=== PATIENT | female | born 1990 | race Caucasian/White ===

== ENCOUNTER 2024-04-20 01:32 | Inpatient (IN) | payer BC, SELFPAY ==
[2024-04-20] VITALS (43 sets, daily range): BP systolic 93–148; BP diastolic 65–110; PULSE 11–138; RESP 20–45; TEMP 36.7–36.9; O2SAT 90–100; BMI 23.6
--- NOTE | ~2024-04-20 | XR_ITS ---
Portable chest x-ray Comparison: None Clinical History: Shortness of breath Findings: Lungs are clear, without focal consolidation or pleural effusion. Cardiomediastinal silho uette is unremarkable. Bones and soft tissues are unremarkable. Impression: Normal chest. Reviewed, dictated and finalized at location . Impression: Normal chest.
[2024-04-20] MEDS: ALBUTEROL SULFATE NEB 2.5 MG/3 ML INH 10 MG INHALATION ×2 (01:40→02:21)
--- NOTE | 2024-04-20 01:42 | ECG_ITS ---
Test Date: 2024-04-20 04:13:41 Measurements Intervals [place] Rate: 117 P: 64 MO: 137 QRS: 40 QRSD: 85 T: 75 QT: 354 QTc: 496 Interpretive Statements SINUS TACHYCARDIA POSSIBLE LEFT ATRIAL ENLARGEMENT MINIMAL Q WAVES- HIGH LATERAL LEADS BORDERLINE T WAVE ABNORMALITY- HIGH LATERAL LEADS ABNORMAL ECG Compared to ECG 04/20/2024 01:52:52 HEART RATE HAS DECREASED Electronically Signed On 04-20-2024 06:43:24 CDT by Braeden Barker D.O.
--- NOTE | 2024-04-20 01:43 | PC.NURSE ---
VORB for 0.3 mg of 1:1000 Epinephrine IM for respiratory distress
[2024-04-20 01:52] LABS: Basophils Absolute Auto 0.4 K/mm3 (0.0-0.1); Basophils Percent Auto 1.9 % (0.2-1.2); Eosinophils Absolute Auto 1.7 K/mm3 (0-0.3); Eosinophils Percent Auto 8.2 % (0-4.4); Hematocrit 39.4 % (37.0-47.0); Hemoglobin 12.9 g/dL (12.0-15.0); Immature Granulocyte Absolute 0.12 K/mm3 (0.00-0.031); Immature Granulocyte Percent A 0.6 % (0-0.5); Lymphocytes Absolute Auto 6.28 K/mm3 (0.9-3.2); Lymphocytes Percent Auto 29.9 % (18.3-44.2); Mean Corpuscular HGB Conc 32.7 g/dl (32-36); Mean Corpuscular Hemoglobin 28.9 pg (26-34); Mean Corpuscular Volume 88.1 fl (80-100); Monocytes Absolute Auto 3.6 K/mm3 (0.1-0.6); Neutrophils Absolute Auto 8.9 K/mm3 (1.3-6.7); Neutrophils Percent Auto 42.4 % (45.5-73.1); Platelet Count Result 399 k/mm3 (150-375); Red Blood Count 4.47 M/mm3 (4.2-5.4); Red Cell Distribution Width 13.6 % (11.5-14.5)
--- NOTE | 2024-04-20 01:52 | ECG_ITS ---
Test Date: 2024-04-20 01:52:52 Measurements Intervals [place] Rate: 138 P: 75 VT: 139 QRS: 43 QRSD: 97 T: 82 QT: 298 QTc: 452 Interpretive Statements SINUS TACHYCARDIA WITH OCCASIONAL VENTRICULAR PREMATURE COMPLEXES BORDERLINE ST-T WAVE ABNORMALITY- LAT/HIGH LAT LEADS BASELINE ARTIFACT- I, II, III, AVR, AVL, AVF, V1-V6 ABNORMAL ECG No previous ECG available for comparison Electronically Signed On 04-21-2024 09:04:08 CDT by Braeden Barker D.O.
[2024-04-20 01:54] LABS: Fractional Inspired Oxygen 100 %; HCO3 VBG 25.6 mEq/l (24.0-30.0)
[2024-04-20 01:55] LABS: pH VBG 7.161 (7.300-7.400)
[2024-04-20 01:56] LABS: Device CPAP; PCO2 VBG 73.2 mmHg (42.0-48.0)
[2024-04-20 02:03] LABS: Alanine Aminotransferase 30 U/L (6-35); Albumin Level 4.5 g/dL (3.5-5.1); Alkaline Phosphatase 93 U/L (38-126); Anion Gap 9 mmol/L (4-12); Aspartate Amino Transferase 39 U/L (14-36); Bilirubin,Total 0.5 mg/dL (0.2-1.3); Blood Urea Nitrogen 12 mg/dL (7-17); Calcium 8.5 mg/dL (8.4-10.2); Carbon Dioxide 28 mmol/L (22-30); Chloride 98 mmol/L (98-107); Estimated Glomerular Filt Rate > 60; Glucose 153 mg/dL (65-110); Lactic Acid Reflex 1.6 mmol/L (0.7-2.0); Potassium 4.2 mmol/L (3.4-5.0); Sodium 135 mmol/L (137-145)
[2024-04-20 02:05] LABS: D Dimer 0.37 ug/mL (<0.48)
[2024-04-20] MEDS: LORazepam INJ (*CRX) 2 MG/ML VIAL 0.5 MG IV PUSH (02:24)
--- NOTE | 2024-04-20 02:28 | ED.GENADULT ---
HPI - General Adult General Chief complaint: Shortness of Breath/Dyspnea Stated complaint: short of breath Time Seen by Provider: 04/20/24 01:45 History of Present Illness HPI narrative: Patient is a 33-year-old female who presents to the emergency department this morning in severe respiratory distress. Patient does have a known history of asthma and states that she has been having worsening of her asthma since she has been battling an upper respiratory infection. Patient admits that she has needed to be hospitalized in the past for her asthma and states that she was intubated at 1 point. EMS administered 2 g of IV magnesium, 10 mg IV Decadron and 5 mg of albuterol breathing treatment. Upon EMS arrival they did note that the patient was tripoding and cyanotic. Patient is speaking in short sentences. No additional symptoms or concerns at this time. Related Data Home Medications Medication Instructions Recorded Confirmed aripiprazole 20 mg tablet 20 mg PO DAILY 08/12/23 03/22/24 bupropion HCl 150 mg 24 hr tablet, 150 mg PO DAILY 08/12/23 03/22/24 extended release bupropion HCl 300 mg 24 hr tablet, 300 mg PO DAILY 08/12/23 03/22/24 extended release hydroxyzine HCl 50 mg tablet 50 mg PO QHS 08/12/23 03/22/24 Allergies Allergy/AdvReac Type Severity Reaction Status Date / Time tetracycline AdvReac Unknown Hives Verified 03/22/24 12:12 Review of Systems Review of Systems: All systems are reviewed and are negative unless stated otherwise in the HPI. [facility] Past Medical History Medical History Anxiety Depression Seizures Family History Family History Father Alcoholism Depression Anxiety Mother Diabetes mellitus Grandparent Hypertension Diabetes mellitus Social History Social History Smoking status: Never smoker Alcohol intake: never Substance use: never Substance use type: does not use Do You Feel Safe in your Home?: Yes Lack of Transportation: No Lack of Food: Never True Current Housing: I Have Housing Concerned About Future Housing: No Difficulty Paying Gas/Electric Bills: No Difficulty Paying for Meds: No Currently Unemployed: No Education: High School Diploma/GED Difficulty w/ Childcare or Family Care: No Living arrangements: alone Occupation/Education: occupation 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 HEENT: PERRL, no rhinorrhea, no post nasal drip, oropharynx clear. Cardiovascular: Regular rate and rhythm, no murmurs, rubs or gallops, no peripheral edema. Respiratory: Use bilateral inspiratory and expiratory, tachypnea, severe respiratory distress. Abdomen: Soft, nontender, nondistended, no rebound, no guarding, no peritoneal signs. Musculoskeletal: No joint swelling or deformity, normal muscle tone. Skin: No rashes or petechia, no signs of infection. Neurological: Alert and oriented to person, place, and time. Follows all commands. No focal deficits, speech is clear and fluent. Course Vital Signs Vital signs: Vital Signs Pulse Rate 133 H 04/20/24 01:40 Respiratory Rate 40 H 04/20/24 01:40 Blood Pressure 146/110 H 04/20/24 01:40 Pulse Oximetry 95 04/20/24 01:40 Oxygen Delivery CPAP 04/20/24 01:40 Pulse Rate 116 H 04/20/24 04:31 Respiratory Rate 20 04/20/24 04:31 Blood Pressure 106/72 04/20/24 04:31 Pulse Oximetry 99 04/20/24 04:31 Oxygen Delivery BiPAP 04/20/24 04:27 Medical Decision Making MDM Narrative Medical decision making narrative: The patient was evaluated by myself in the emergency department. History is obtained from patient who is an independent historia
[2024-04-20] MEDS: IPRATROPIUM 0.5 MG/ALBUTEROL SULFATE 2.5 MG AMPUL.NEB 3 ML 12 ML INHALATION (02:51)
[2024-04-20] MEDS: IPRATROPIUM 0.5 MG/ALBUTEROL SULFATE 2.5 MG AMPUL.NEB 3 ML 12 ML (02:56)
[2024-04-20] MEDS: EPINEPHrine INJ 1 MG in DEXTROSE 5% IN WATER 250 ML 75.3 MG IV CONT ×2 (03:03→06:42)
[2024-04-20] MEDS: SODIUM CHLORIDE 0.9% IV 1,000 ML 999 ML IV CONT (04:04)
[2024-04-20 04:23] LABS: Alveolar/Arterial O2 Gradient 156.2 mmHg; Base Excess ABG -0.1 mEq/l (+/-2.0); Fractional Inspired Oxygen 100 %; HCO3 ABG 25.2 mEq/l (22.0-26.0); Oxygen Content ABG 19.1 %vol (16.0-22.0); Oxygen Saturation ABG 99.9 % (95.0-100.0); PCO2 ABG 43.8 mmHg (35.0-45.0); PO2 FiO2 Ratio Arterial Blood 5.13 %; Total Hemoglobin 12.7 g/dL (12.0-18.0); pH ABG 7.378 (7.350-7.450)
[2024-04-20 04:24] LABS: Device NON-INVASIVE VENT; Modified Allen's Test Pass; Non-Invasive Expiratory Pressure 8 CMH2O; Non-Invasive Inspiratory Pressure 16 CMH2O; Non-Invasive Vent Rate 12 /MIN; Site Drawn LEFT RADIAL
--- NOTE | 2024-04-20 06:09 | ADMGEN ---
This patient, Nicki Moise, was admitted to Intensive Care Unit-8. Patient/family oriented to hospital policies and general routines including ID bracelet, bed and alarms, visiting hours, pain management, procedures, bathroom and other care routines, personal items, smoking policy, room service/diet, and visiting hours. Information on how to activate the Rapid Response Team has been discussed. Patient/Family are encouraged to report perceived risks to care and to ask questions if they do not understand what they are told or what they should do.
[2024-04-20] MEDS: IPRATROPIUM 0.5 MG/ALBUTEROL SULFATE 2.5 MG AMPUL.NEB 3 ML INHALATION (07:46)
--- NOTE | 2024-04-20 08:16 | PM.IMHP ---
H&P: HPI History of Present Illness Date/Time: 04/20/24 08:16 Chief Complaint: Shortness of breath Narrative: 33yo female with mild intermittent asthma, depression, anxiety and psychogenic seizures here for shortness of breath. Patient denies eczema or allergies. She has never been hospitalized or intubated for asthma. She does not seen pulmonology. She was using exclusively Albuterol inhaler until she received a nebulizer 6 months ago. She now uses Albuterol and Atrovent nebulizer 4x/day. She uses the Albuterol inhaler about once every week on average. She is not on any other inhalers but has been before (she recalls Advair) but can not afford these medications. No hx of receiving IV treatment for her asthma. She has a gecko but no other pets. No CAD. Her 2 children have been ill with cold symptoms of rhinorrhea, cough and chest congestion. She became ill 2 days ago with nasal congestion, chest tightness, cough productive of yellow sputum, pleuritic chest tightness and wheezing. No fever or chills. No MAR, vision changes, hearing changes, otalgia, odynophagia, dysphagia, n/v/d, dysuria, hematuria or other symptoms. She feels she has to void but having trouble voiding. Her SOB worsened with having trouble taking a breath and EMS called. On EMS arrival, they noted patient was tripoding and cyanotic. They administered 2 g of IV magnesium, 10 mg IV Decadron and 5 mg of albuterol breathing treatment. She was brought into the ED for evaluation. In the ED, she was tachycardic (130's), hypertensive at 146/110 and tachypneic with RR 40's. CXR was clear. CPAP started but VBG showing 7.16/73/129 so changed to BiPAP. WBC was 21K with eosinophilia (8.2% with 1700cells). DDimer was negative. CMP normal except for sodium of 135, AST 39 and glucose 153. Glucose was after given steroids. EKG showing sinus tachycardia, ?LAE, minimal Q's in high lateral leads and borderline T wave changes. She was given prolonged bronchodilators, Ativan, IV fluid bolus and Epinephrine IV. She was admitted to the ICU for further management. She remains on BiPAP. Repeat ABG 7.37/44/513 on bipap. Review of Systems Review of Systems: All systems reviewed & are unremarkable except as noted in HPI and below PMFSH Past Medical History Medical History Anxiety Asthma Depression Seizures psychogenic Surgical History Surgical History No history of previous surgery Family History Family History Father Alcoholism Depression Anxiety Mother Diabetes mellitus Grandparent Hypertension Diabetes mellitus Social History Social History (Updated 04/20/24 @ 09:26 by Dirk Cole MD) Social History: Smokes marijuana daily. No tobacco smoking. Lives at home with and 2 children. No IVDU or hx of IV drug use. No alcohol use. Full Code Surrogate decision maker - . 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
[2024-04-20] MEDS: ENOXAPARIN 40 MG/0.4 ML SYRINGE SUB-Q (08:35)
--- NOTE | 2024-04-20 08:38 | WPDCNINT ---
Assessment and Plan Assessment and plan (1) Status asthmaticus: Code(s): J45.902 - Unspecified asthma with status asthmaticus Status: Acute Assessment and Plan: Patient appears to have status asthmaticus which was likely precipitated by either URI or her daily marijuana inhalation.. Patient does have a baseline persistent severe asthma which has been poorly treated and controlled due to her inability to afford medications except albuterol Patient treated with magnesium Decadron bronchodilators IM epinephrine and BiPAP in the ER. Patient was started on IV infusion of epinephrine Repeat ABG reviewed and patient appears to be clinically improved with good tidal volumes and resolution of respiratory distress I will start weaning down epinephrine infusion slowly Continue BiPAP for now Continue Solu-Medrol and bronchodilators Elevated WBC could be from stress steroids or epinephrine. She is afebrile. Chest x-ray is negative. She is currently not on antibiotics I will Check procalcitonin level Check PCR for RSV flu and COVID (2) Acute respiratory failure: Code(s): J96.00 - Acute respiratory failure, unspecified whether with hypoxia or hypercapnia Status: Acute Assessment and Plan: Acute respiratory failure secondary to status asthmaticus. Management as above. (3) Marijuana abuse: Code(s): F12.10 - Cannabis abuse, uncomplicated Status: Acute Assessment and Plan: Patient was counseled and encouraged not to inhale marijuana back switch can not respirator asthma exacerbation. Plan DVT prophylaxis -Lovenox Nutrition -npo Code Status - Full Code Total Critical Care Time - 35 minutes Due to a high probability of clinically significant, life threatening deterioration, the patient required my highest level of preparedness to intervene emergently and I personally spent this critical care time directly and personally managing the patient. This critical care time included obtaining a history; examining the patient; pulse oximetry; ordering and review of studies; arranging urgent treatment with development of a management plan; evaluation of patient's response to treatment; frequent reassessment; and discussions with other providers. It was exclusive of separately billable procedures and treating other patients and teaching time. Please see Assessment and Plan section and the rest of the note for further information on patient assessment and treatment Hotel General Manager Consult Note Consult date: 04/20/24 Reason for consult: Status asthmaticus, acute respiratory failure HPI: Nicki Moise is a 33 year old female with past medical history of pseudoseizures, depression, anxiety, borderline personality disorder, asthma presented to ER today with chief complaint of shortness of breath. Patient has severe persistent asthma and has not been able to afford any other inhaler or medication except the albuterol which she uses on regular basis. Over last 2 days patient states that she was exposed to her child who had a URI. She started having stuffy nose with nasal discharge. This led to her having difficulty breathing over last 2 days. With chest tightness and inability to take deep breaths. Patient had some cough although it was not significant and had mild phlegm associated with it. She did not had any fever. No abdominal pain nausea vomiting diarrhea hematochezia melena dysuria hematuria. Review of system was also positive for constipation which is chronic. She states that she had chest pain with deep breathing. She was using her inhaler 4 to 5 times a day. All other systems were reviewed and were negative. She admitted to me that she inhales THC wax daily. Denies any smoking or any other drug use. Denies any alcohol use. Patient presented to ER in severe respiratory distress and low was having difficulty breathing with diffuse wheezing. She was tripoding with cyanosis. VBG showed hypercarbia and acidos
[2024-04-20 09:13] LABS: Procalcitonin 0.1 ng/mL
[2024-04-20 09:20] LABS: SPREG INTERNAL CONTROL Positive; Serum Qual hCG Negative
--- NOTE | 2024-04-20 09:21 | PM.CNPUL ---
Assessment and Plan Assessment and plan (1) Status asthmaticus: Code(s): J45.902 - Unspecified asthma with status asthmaticus Status: Acute Assessment and Plan: 33-year-old with a history of childhood asthma that went into remission but recurred 2 years ago when she started smoking synthetic marijuana. She is maintained on albuterol nebulizers 1 to 2 times a day and cannot afford inhaled corticosteroids. She presents with 24 hours of URI symptoms and status asthmaticus with an ABG on CPAP of 7.16/73/129. Patient was started on steroids, bronchodilators, epinephrine drip, magnesium and continued on BiPAP. 04/20/2024 at 9:00 a.m.: currently the patient is on BiPAP rate of 12, pressure 16/8, 30% FiO2 and in no respiratory distress. She states that she is 80% back to normal. She said the BiPAP pressures were somewhat uncomfortable and I changed her to noninvasive ventilation with the AVAPS mode rate of 10, tidal volume 450, EPAP 5, minimal inspiratory pressure 6, maximal inspiratory pressure 25, inspiratory time 1.1, rise of 2 and 30% FiO2. She had bilateral inspiratory and expiratory course wheezes. Plan: Etiology of asthma exacerbation includes URI and or exposure tooth synthetic marijuana. I will continue noninvasive ventilation for comfort at this time and I placed her on the AVAPS mode PRN. Agree with weaning epinephrine drip to off as tolerated. Patient is on Solu-Medrol 60 mg IV q.6. Continue albuterol and ipratropium nebulizers q.4 hours. Chest x-ray is clear. COVID, influenza and RSV RT PCR study is pending. I will order respiratory pathogen panel that will be sent to [facility] with results back in approximately 7 days. Procalcitonin is pending and if this is elevated would consider azithromycin otherwise would hold off on antibiotics. Discussed with Kike Cole and Sal. Will follow with you History of Present Illness History of Present Illness Consult date: 04/20/24 Chief complaint: Severe asthma exacerbation, On CPAP, Epi drip Narrative: 04/20/2024: This is a new pulmonary consult for asthma 33-year-old with a history of asthma and depression presented to the ED with status asthmaticus. Patient is currently on BiPAP but able to communicate. She has a history of asthma as a baby and was on inhalers as a young child and 3 grade school. Her asthma got better and she was off medicines. Approximately 2 years ago she started smoking synthetic marijuana and noticed that her asthma began to flare. She tells me she takes albuterol nebulizers 1 to 2 times a day at home but cannot afford inhaled steroids. Patient's usual triggers include stress and smoke. Patient was in her usual state of health until 924 when she developed URI symptoms consisting of sinus congestion, sinus drainage, chest tightness. Symptoms progressed and she presented to the emergency room on 04/20 at 1 in the morning. She was in severe respiratory distress and she tells me she felt like she was going to . EMS had administered 2 g IV magnesium, 10 mg of Decadron and 5 mg albuterol treatment she was tripoding and cyanotic and was placed on CPAP 100% FiO2 with a blood gas of 7.16/73/129. Patient was given broncho dilators, Ativan epinephrine drip and Solu-Medrol. She was placed on BiPAP and transferred to the ICU. 04/20/2024 at 9:00 a.m.: currently the patient is on BiPAP rate of 12, pressure 16/8, 30% FiO2 and in no respiratory distress. She states that she is 80% back to normal. She said the BiPAP pressures were somewhat uncomfortable and I changed her to noninvasive ventilation with the AVAPS mode rate of 10, tidal volume 450, EPAP 5, minimal inspiratory pressure 6, maximal inspiratory pressure 25, inspiratory time 1.1, rise of 2 and 30% FiO2. She had bilateral inspiratory and expiratory course wheezes. DATA 04/20/24: Portable chest x-ray Comparison: None Clinical History: Aminah
[2024-04-20 09:24] LABS: Influenza A QL RT-PCR Negative (Negative); Influenza B QL RT-PCR Negative (Negative); RSV RNA, RT-PCR Negative (Negative); SARS-CoV-2 RNA PCR Negative (Negative)
[2024-04-20 10:02] LABS: MRSA (PCR) NOT DETECTED (NOT DETECTE)
[2024-04-20] MEDS: ARIPiprazole 10 MG TABLET 20 MG PO (10:43)
[2024-04-20] MEDS: buPROPion HCL XL (24 HR) 150 MG TABCR 300 MG PO (10:43)
[2024-04-20] MEDS: IPRATROPIUM 0.5 MG/ALBUTEROL SULFATE 2.5 MG AMPUL.NEB 3 ML NEBULIZE ×3 (11:18→20:06)
[2024-04-20] MEDS: methylPREDNISolone SOD SUCC 125 MG VIAL 60 MG IV PUSH ×3 (12:04→22:57)
--- NOTE | 2024-04-20 12:50 | PC.NURSE ---
Updated patient's mother, Dorothea, via telephone on plan of care and patient condition.
[2024-04-20] MEDS: buPROPion HCL XL (24 HR) 150 MG TABCR PO (20:57)
[2024-04-20] MEDS: hydrOXYzine HCL 25 MG TABLET 50 MG PO (22:56)
[2024-04-21] VITALS (32 sets, daily range): BP systolic 90–109; BP diastolic 63–90; PULSE 85–135; RESP 16–24; TEMP 36–36.9; O2SAT 91–98
[2024-04-21] MEDS: IPRATROPIUM 0.5 MG/ALBUTEROL SULFATE 2.5 MG AMPUL.NEB 3 ML NEBULIZE ×6 (00:56→19:47)
[2024-04-21 05:02] LABS: Hematocrit 35.3 % (37.0-47.0); Hemoglobin 11.9 g/dL (12.0-15.0); Mean Corpuscular HGB Conc 33.7 g/dl (32-36); Mean Corpuscular Hemoglobin 29.5 pg (26-34); Mean Corpuscular Volume 87.4 fl (80-100); Mean Platelet Volume 10.1 fl (7.4-10.4); Platelet Count Result 246 k/mm3 (150-375); Red Blood Count 4.04 M/mm3 (4.2-5.4)
[2024-04-21] MEDS: methylPREDNISolone SOD SUCC 125 MG VIAL 60 MG IV PUSH (05:12)
[2024-04-21 05:14] LABS: Alanine Aminotransferase 28 U/L (6-35); Albumin Level 4.1 g/dL (3.5-5.1); Alkaline Phosphatase 82 U/L (38-126); Anion Gap 8 mmol/L (4-12); Aspartate Amino Transferase 39 U/L (14-36); Bilirubin,Total 0.3 mg/dL (0.2-1.3); Blood Urea Nitrogen 14 mg/dL (7-17); Calcium 8.8 mg/dL (8.4-10.2); Carbon Dioxide 23 mmol/L (22-30); Chloride 107 mmol/L (98-107); Estimated Glomerular Filt Rate > 60; Glucose 131 mg/dL (65-110); Magnesium 2.6 mg/dL (1.6-2.3); Potassium 4.6 mmol/L (3.4-5.0); Sodium 138 mmol/L (137-145)
--- NOTE | 2024-04-21 08:04 | PM.PNPUL ---
Progress Note: A&P Assessment and Plan (1) Status asthmaticus: Code(s): J45.902 - Unspecified asthma with status asthmaticus Status: Acute Assessment and Plan: 33-year-old with a history of childhood asthma that went into remission but recurred 2 years ago when she started smoking synthetic marijuana. She is maintained on albuterol nebulizers 1 to 2 times a day and cannot afford inhaled corticosteroids. She presents with 24 hours of URI symptoms and status asthmaticus with an ABG on CPAP of 7.16/73/129. Eosinophils 1722 per micro L. D-dimer negative. Patient was started on steroids, bronchodilators, epinephrine drip, magnesium and continued on BiPAP. 04/20/2024 at 9:00 a.m.: currently the patient is on BiPAP rate of 12, pressure 16/8, 30% FiO2 and in no respiratory distress. She states that she is 80% back to normal. She said the BiPAP pressures were somewhat uncomfortable and I changed her to noninvasive ventilation with the AVAPS mode rate of 10, tidal volume 450, EPAP 5, minimal inspiratory pressure 6, maximal inspiratory pressure 25, inspiratory time 1.1, rise of 2 and 30% FiO2. She had bilateral inspiratory and expiratory course wheezes. Plan: Etiology of asthma exacerbation includes URI and or exposure tooth synthetic marijuana. I will continue noninvasive ventilation for comfort at this time and I placed her on the AVAPS mode PRN. Agree with weaning epinephrine drip to off as tolerated. Patient is on Solu-Medrol 60 mg IV q.6. Continue albuterol and ipratropium nebulizers q.4 hours. Chest x-ray is clear. COVID, influenza and RSV RT PCR study is pending. I will order respiratory pathogen panel that will be sent to [facility] with results back in approximately 7 days. Procalcitonin is pending and if this is elevated would consider azithromycin otherwise would hold off on antibiotics. Later in the day epinephrine was weaned off. Procalcitonin 0.1. COVID, RSV, influenza RT PCR assay negative. 04/21/2024: The patient tells me she continues to improvement feels that she is 90% back to normal. She states she is still wheezing. Patient says her cough is a little more pronounced than yesterday and she has a little bit of phlegm with no hemoptysis. She is afebrile. Patient was told to wear the noninvasive ventilator last night and it does help her breathe. When I enter the room she was on noninvasive ventilator with the AVAPS mode on 30% FiO2 with saturations 100%. I took the patient off and placed her on 2 L nasal cannula her saturations were 97%. [place]. [place] [id number], creatinine is 0.6. Plan: Patient is improved. I will decrease her IV Solu-Medrol from 60 q.6 to 40 Q 6. Will continue DuoNebs q.4 hours. Patient can wear the noninvasive ventilation on a p.r.n. basis. Goal saturation 90-94 %, wean FiO2 accordingly. Respiratory pathogen panel to check 21 respiratory pathogens sent to [facility] and results pending. out of bed to chair. From a pulmonary perspective patient can be transferred out of the ICU to IMU. Will follow with you. Subjective Date/time seen: 04/21/24 08:04 Interval history: 04/20/2024: This is a new pulmonary consult for asthma 33-year-old with a history of asthma and depression presented to the ED with status asthmaticus. Patient is currently on BiPAP but able to communicate. She has a history of asthma as a baby and was on inhalers as a young child and 3 grade school. Her asthma got better and she was off medicines. Approximately 2 years ago she started smoking synthetic marijuana and noticed that her asthma began to flare. She tells me she takes albuterol nebulizers 1 to 2 times a day at home but cannot afford inhaled steroids. Patient's usual triggers include stress and smoke. Patient was in her usual state of health until when she developed URI symptoms consisting of sinus congestion, sinus drainage, chest tightness.
[2024-04-21] MEDS: buPROPion HCL XL (24 HR) 150 MG TABCR 300 MG PO (08:15)
[2024-04-21] MEDS: ENOXAPARIN 40 MG/0.4 ML SYRINGE SUB-Q (08:15)
[2024-04-21] MEDS: ARIPiprazole 10 MG TABLET 20 MG PO (08:15)
[2024-04-21] MEDS: buPROPion HCL XL (24 HR) 150 MG TABCR PO (08:15)
[2024-04-21 08:53] LABS: CPAP 12 cmH2O
--- NOTE | 2024-04-21 09:40 | WPDINTPN ---
Progress Note: A&P Assessment and Plan (1) Status asthmaticus: Code(s): J45.902 - Unspecified asthma with status asthmaticus Status: Acute Assessment and Plan: Patient appears to have status asthmaticus which was likely precipitated by either URI or her daily marijuana inhalation/Dabbing.. Patient does have a baseline persistent severe asthma which has been poorly treated and controlled due to her inability to afford medications except albuterol. Patient was treated with magnesium Decadron bronchodilators IM epinephrine and BiPAP in the ER. Patient was started on IV infusion of epinephrine Repeat ABG reviewed and patient appears to be clinically improved with good tidal volumes and resolution of respiratory distress 04/20 patient was evaluated by Pulmonary. Epinephrine infusion was weaned off. Patient was weaned off of BiPAP and later switched to AVAPS mode. She wore AVAPS during the night. Procalcitonin level was low 04/21 clinically improved but still wheezy. On 2 L nasal cannula. Continue steroids but decrease dose. Continue bronchodilators. Continue NIPPV p.r.n. Advance diet Elevated WBC could be from stress steroids or epinephrine. She is afebrile. Chest x-ray is negative. She is currently not on antibiotics Low procalcitonin level Negative PCR for RSV flu and COVID (2) Acute respiratory failure: Code(s): J96.00 - Acute respiratory failure, unspecified whether with hypoxia or hypercapnia Status: Acute Assessment and Plan: Acute respiratory failure secondary to status asthmaticus. Management as above. (3) Marijuana abuse: Code(s): F12.10 - Cannabis abuse, uncomplicated Status: Acute Assessment and Plan: Patient was counseled and encouraged not to inhale marijuana Plan DVT prophylaxis -Lovenox Nutrition -diet ordered Code Status - Full Code Incentive spirometry Transfer out of ICU today Subjective Date/time seen: 04/21/24 Overnight events reviewed. Afebrile Patient wore AVAPS overnight and now on nasal cannula 2 L She states she feels overall better but still feel wheezy. She denies any shortness of breath or feeling of distress. Tolerating p.o. diet. Other vitals have been stable She is afebrile She still has some cough but does mostly dry All other systems were reviewed and were negative Other Vitals acceptable Interval history: 33-year-old female with status asthmaticus Review of Systems Review of Systems: All systems reviewed & are unremarkable except as noted in HPI and below (HPI) Exam Narrative: General: Pt is alert awake and in NAD Lungs/Chest: Trachea central Clear BS B/L, bilateral wheezing present, no tachypnea or respiratory distress. No use of accessory muscles. Patient able to speak full sentences. Cardiac: RRR. Normal S1 S2. No murmurs Circulation: Pedal pulses are intact and symmetrical. Abdomen: Normal bowel sounds.. Soft. NT. ND. Extremities: No clubbing, cyanosis or edema. Warm : Villanueva in place Neurologic: Follows commands. Moves all 4 extremities PERRL AO x3 Skin: No Rash Objective Data Vital Signs Vital Signs: Vital Signs - 24 hr 04/20/24 10:00 04/20/24 10:00 04/20/24 10:00 Temperature Pulse Rate 111 H 11 L 111 H Respiratory Rate 21 H Blood Pressure 96/78 L 96/78 L Pulse Oximetry 97 Oxygen Delivery Oxygen Flow Rate Fraction of Inspired Oxygen 04/20/24 10:30 04/20/24 11:18 04/20/24 11:18 Temperature Pulse Rate 106 H 117 H Respiratory Rate 24 H Blood Pressure 103/72 Pulse Oximetry 90 Oxygen Delivery Room Air Oxygen Flow Rate Fraction of Inspired Oxygen 21 04/20/24 11:31 04/20/24 11:42 04/20/24 11:00 Temperature Pulse Rate 123 H 107 H Respiratory Rate 23 H Blood Pressure 93/71 L Pulse Oximetry 93 Oxygen Delivery Nasal Cannula Oxygen Flow Rate 2 Fraction of Inspired Oxygen 04/20/24 12:00 04/20/24 12:00 04/20/24 12:00 Temperature 3
[2024-04-21] MEDS: methylPREDNISolone SOD SUCC 125 MG VIAL 40 MG IV PUSH ×3 (11:46→23:47)
--- NOTE | 2024-04-21 13:02 | PC.NURSE ---
This patient, Nicki Moise, was received from [ ICU-8] on 04/21/24 at 1230. Patient/family oriented to unit policies and routines
--- NOTE | 2024-04-21 17:31 | PM.IMPN ---
Progress Note: A&P Assessment and Plan (1) Acute respiratory failure: Code(s): J96.00 - Acute respiratory failure, unspecified whether with hypoxia or hypercapnia Status: Acute Assessment and Plan: Patient presents in acute respiratory failure related to asthma exacerbation. CXR was clear. CPAP started but VBG showing 7.16//129 so changed to BiPAP. She was given prolonged bronchodilators, Ativan, IV fluid bolus and Epinephrine IV and admitted to the ICU. Started on Epinephrine drip and continued on Solu-Medrol and bronchodilators. Weaned off BiPAP. Epinephrine stopped 04/20. Pulmonary consulted and appreciate their input. Much improved. Elevated WBC related to stress response and steroids. Wean O2 as tolerated. Continue current treatment plan. Continue Duonebs, Solu-Medrol. (2) Status asthmaticus: Code(s): J45.902 - Unspecified asthma with status asthmaticus Status: Acute Assessment and Plan: As above. Patient is poorly treated at home and is at risk for repeated hospitalization and increased morbidity. COVID, influenza and RSV PCR negative. Will need more proper treatment plan prior to discharge. (3) Eosinophilia: Code(s): D72.10 - Eosinophilia, unspecified Status: Acute Assessment and Plan: CXR clear. She does smoke marijuana so consider ABPA. Doubt Ch[place]-Jos[facility] Antonio since no other organ systems affected and eos count not that high. Stool O&P ordered Pulm consulted. Follow (4) Marijuana abuse: Code(s): F12.10 - Cannabis abuse, uncomplicated Status: Acute Assessment and Plan: She was educated about the benefit of abstaining marijuana but, if she does use this substance, then avoid smoking or vaping this product and instead use oral route. She voices understanding (5) Depression with anxiety: Code(s): F41.8 - Other specified anxiety disorders Status: Acute Assessment and Plan: Mood stable. Continue Abilify and Wellbutrin. Plan Bladder distention - bladder emptying normally now. Code status - Full DVT Prophylaxis - Lovenox Subjective Date/time seen: 04/21/24 17:31 Interval history: 33yo female with mild intermittent asthma, depression, anxiety and psychogenic seizures here for shortness of breath. SOB better. Still wheezing. no CP. SLept well. Cough productive of yellow sputum Exam Narrative: AF 97.9 102/63 98 18 94% 2L Gen - NARD Chest - inspiratory and expir wheezes with improved air exchange. nml RR CV - RRR S1/S2 Abd - Soft, NT/ND, Positive BS Ext - No pedal edema Psych - Nml mood and affect Skin - Warm and dry Objective Data Vital Signs Vital Signs: Vital Signs - 24 hr 04/20/24 18:00 04/20/24 18:00 04/20/24 20:06 Temperature Pulse Rate 108 H 108 H 112 H Respiratory Rate 24 H 25 H Blood Pressure 106/79 Pulse Oximetry 95 Oxygen Delivery Oxygen Flow Rate Fraction of Inspired Oxygen 04/20/24 20:16 04/20/24 20:05 04/20/24 20:00 Temperature Pulse Rate 108 H 112 H Respiratory Rate 23 H Blood Pressure Pulse Oximetry 93 Oxygen Delivery Nasal Cannula Oxygen Flow Rate 3 Fraction of Inspired Oxygen 04/20/24 20:00 04/20/24 20:00 04/20/24 22:00 Temperature 98.1 F Pulse Rate 104 H 110 H Respiratory Rate 24 H Blood Pressure 97/69 L Pulse Oximetry 93 93 Oxygen Delivery Nasal Cannula Oxygen Flow Rate 3 Fraction of Inspired Oxygen 04/20/24 22:00 04/21/24 00:00 04/21/24 00:00 Temperature 98.4 F Pulse Rate 110 H 96 Respiratory Rate 22 H 20 Blood Pressure 97/82 L 98/73 L Pulse Oximetry 96 98 98 Oxygen Delivery BiPAP Oxygen Flow Rate Fraction of Inspired Oxygen 30 04/21/24 00:00 04/20/24 23:05 04/21/24 00:57 Temperature Pulse Rate 95 106 H 91 Respiratory Rate 23 H 20 Blood Pressure Pulse Oximetry 97 Oxygen Delivery BiPAP Oxygen Flow Rate Fraction of Inspired Oxygen
[2024-04-21] MEDS: hydrOXYzine HCL 25 MG TABLET 50 MG PO (20:15)
[2024-04-22] VITALS (21 sets, daily range): BP systolic 107–112; BP diastolic 54–73; PULSE 81–129; RESP 18–20; TEMP 36.4–36.6; O2SAT 88–100
[2024-04-22] MEDS: IPRATROPIUM 0.5 MG/ALBUTEROL SULFATE 2.5 MG AMPUL.NEB 3 ML NEBULIZE ×5 (00:26→16:02)
[2024-04-22] MEDS: methylPREDNISolone SOD SUCC 125 MG VIAL 40 MG IV PUSH ×2 (06:17→12:17)
--- NOTE | 2024-04-22 08:31 | PM.PNPUL ---
Progress Note: A&P Assessment and Plan (1) Status asthmaticus: Code(s): J45.902 - Unspecified asthma with status asthmaticus Status: Acute Assessment and Plan: 33-year-old with a history of childhood asthma that went into remission but recurred 2 years ago when she started smoking synthetic marijuana. She is maintained on albuterol nebulizers 1 to 2 times a day and cannot afford inhaled corticosteroids. She presents with 24 hours of URI symptoms and status asthmaticus with an ABG on CPAP of 7.16/73/129. Eosinophils 1722 per micro L. D-dimer negative. Patient was started on steroids, bronchodilators, epinephrine drip, magnesium and continued on BiPAP. 04/20/2024 at 9:00 a.m.: currently the patient is on BiPAP rate of 12, pressure 16/8, 30% FiO2 and in no respiratory distress. She states that she is 80% back to normal. She said the BiPAP pressures were somewhat uncomfortable and I changed her to noninvasive ventilation with the AVAPS mode rate of 10, tidal volume 450, EPAP 5, minimal inspiratory pressure 6, maximal inspiratory pressure 25, inspiratory time 1.1, rise of 2 and 30% FiO2. She had bilateral inspiratory and expiratory course wheezes. Plan: Etiology of asthma exacerbation includes URI and or exposure tooth synthetic marijuana. I will continue noninvasive ventilation for comfort at this time and I placed her on the AVAPS mode PRN. Agree with weaning epinephrine drip to off as tolerated. Patient is on Solu-Medrol 60 mg IV q.6. Continue albuterol and ipratropium nebulizers q.4 hours. Chest x-ray is clear. COVID, influenza and RSV RT PCR study is pending. I will order respiratory pathogen panel that will be sent to [facility] with results back in approximately 7 days. Procalcitonin is pending and if this is elevated would consider azithromycin otherwise would hold off on antibiotics. Later in the day epinephrine was weaned off. Procalcitonin 0.1. COVID, RSV, influenza RT PCR assay negative. 04/21/2024: The patient tells me she continues to improvement feels that she is 90% back to normal. She states she is still wheezing. Patient says her cough is a little more pronounced than yesterday and she has a little bit of phlegm with no hemoptysis. She is afebrile. Patient was told to wear the noninvasive ventilator last night and it does help her breathe. When I enter the room she was on noninvasive ventilator with the AVAPS mode on 30% FiO2 with saturations 100%. I took the patient off and placed her on 2 L nasal cannula her saturations were 97%. [place]. [place] [address], creatinine is 0.6. Plan: Patient is improved. I will decrease her IV Solu-Medrol from 60 q.6 to 40 Q 6. Will continue DuoNebs q.4 hours. Patient can wear the noninvasive ventilation on a p.r.n. basis. Goal saturation 90-94 %, wean FiO2 accordingly. Respiratory pathogen panel to check 21 respiratory pathogens sent to [facility] and results pending. out of bed to chair. From a pulmonary perspective patient can be transferred out of the ICU to IMU. 04/22/2024. Patient continues to improve and tells me she is 99-100% back to her normal. She did not wear supplemental oxygen since yesterday afternoon and did not wear noninvasive ventilation last night. She said she slept well other than being woken up every 2 hours. Currently she is on room air with saturations 97%. She has been walking in the room and to the bathroom and feels as if she is breathing normally with this ambulation. she has minimal cough and no mucus production. She has a few end expiratory wheezes on exam. Lengthy discussion with patient regarding discontinuation of smoking the marijuana wax, dad ABS. She tells me she smokes to treat her anxiety and depression since age 15. She is seen a psychiatrist. She feels she will be able to quit. She tells me previously she was prescribed Symbicort which was 100 dollars per month that she could not a
[2024-04-22] MEDS: buPROPion HCL XL (24 HR) 150 MG TABCR 300 MG PO (08:44)
[2024-04-22] MEDS: ARIPiprazole 10 MG TABLET 20 MG PO (08:44)
[2024-04-22] MEDS: buPROPion HCL XL (24 HR) 150 MG TABCR PO (08:45)
--- NOTE | 2024-04-22 14:51 | PM.DS ---
DS: Admitting Diagnosis Discharge Date 04/22/24 Admitting Diagnosis Shortness of breath DS: Discharge Diagnosis Discharge Diagnosis (1) Acute respiratory failure: Code(s): J96.00 - Acute respiratory failure, unspecified whether with hypoxia or hypercapnia Status: Acute (2) Status asthmaticus: Code(s): J45.902 - Unspecified asthma with status asthmaticus Status: Acute (3) Eosinophilia: Code(s): D72.10 - Eosinophilia, unspecified Status: Acute (4) Marijuana abuse: Code(s): F12.10 - Cannabis abuse, uncomplicated Status: Acute (5) Depression with anxiety: Code(s): F41.8 - Other specified anxiety disorders Status: Acute DS: Summary Hospital Course Reason for hospitalization: 33yo female with mild intermittent asthma, depression, anxiety and psychogenic seizures here for shortness of breath. Please see H&P for details. Hospital Course: Patient presents in acute respiratory failure related to asthma exacerbation. CXR was clear. CPAP started but VBG showing 7.16/73/129 so changed to BiPAP. She was given prolonged bronchodilators, Ativan, IV fluid bolus and Epinephrine IV and admitted to the ICU. Started on Epinephrine drip and continued on Solu-Medrol and bronchodilators. Weaned off BiPAP. Epinephrine stopped 04/20. Pulmonary consulted and appreciate their input. Much improved. Elevated WBC related to stress response and steroids. Patient's asthma is poorly treated at home and is at risk for repeated hospitalization and increased morbidity. COVID, influenza and RSV PCR negative. She does smoke marijuana. She was educated about the benefit of abstaining marijuana but, if she does use this substance, then avoid smoking or vaping this product and instead use oral route. She voiced understanding. She was able to be weaned to room air. She overall did well and was able to be discharged home on 04/22/24 Status at Discharge Cognitive/behavioral status at discharge: stable Time Spent with Patient Time attestation: Total time spent providing and/or coordinating discharge services: 34 minutes Time spent: Greater than 30 minutes Exam Narrative: AF 97.9 109/69 103 18 93% RA Gen - NARD Chest - few scattered rhonchi but good air exchange. nml RR CV - RRR S1/S2. Tele showing no significant dysrhythmias Abd - Soft, NT/ND, Positive BS Ext - No pedal edema Psych - Nml mood and affect Skin - Warm and dry Discharge Plan Discharge Attending physician on discharge: Dirk Cole Consulting providers: Rajinder Lubin; Paddy Huang Discharging Clinician: Dirk Cole Anticipated Discharge Date/Time: 04/22/24 15:11 Patient Disposition: Home, Self-Care Activity: as tolerated Diet: regular Discharge Instructions: Contact your doctor or call 911 and come to the Emergency Room if you have shortness of breath or other worrisome symptoms. Avoid NSAIDs (ibuprofen, naproxen, Aleve). Tylenol is safe to take. Follow-up with your primary care provider in 1-2 weeks. Please call for appointment. Thank you for using [facility] for your health care needs. Patient Instructions: Antibiotic Form, Enoxaparin (By injection), Pain Management (DC), Hypoxia (GEN) Stand Alone Forms: General Discharge Information Follow-up/Referrals: Aleida Lovell MD [Primary Care Provider] - Call for Appointment Discharge Medications: New prednisone 50 mg tablet 50 mg PO DAILY Qty: 2 0RF budesonide-formoterol [Symbicort] 160-4.5 mcg/actuation HFA aerosol inhaler 2 puff inhalation Q12H Qty: 10.2 2RF Continued aripiprazole 20 mg tablet 20 mg PO DAILY bupropion HCl 300 mg tablet extended release 24 hr 300 mg PO DAILY bupropion HCl 150 mg tablet extended release 24 hr 150 mg PO DAILY hydroxyzine HCl 50 mg tablet 75 mg PO TID Rx Instructions: 1.5 tab 4x daily albuterol sulfate 90 mcg/actuation HFA ae
[2024-04-23 15:08] LABS: Adenovirus DNA Not Detected (Not Detected); Chlamydophila pneumoniae Not Detected (Not Detected); Coronavirus 229E Not Detected (Not Detected); Coronavirus HKU1 Not Detected (Not Detected); Coronavirus NL63 Not Detected (Not Detected); Coronavirus OC43 Not Detected (Not Detected); Human Metapneumovirus Not Detected (Not Detected); Human Parainfluenza Virus 1 Not Detected (Not Detected); Human Parainfluenza Virus 2 Not Detected (Not Detected); Human Parainfluenza Virus 3 Not Detected (Not Detected); Human Parainfluenza Virus 4 Not Detected (Not Detected); Human RSV B Not Detected (Not Detected); Influenza A Not Detected (Not Detected); Influenza B Not Detected (Not Detected); Mycoplasma pneumoniae Not Detected (Not Detected); Rhinovirus/Enterovirus Detected (Not Detected)
== END 2024-04-22 16:18 | disposition home or self-care (01) | DRG 189 ==
LOC: ANHED 05:24 → ANHICU 05:38 → ANHIMU 04-21 13:02
PROVIDERS: Internal Medicine; Internal Medicine Pulmonary Disease; Student in an Organized Health Care Education/Training Program; Admitting Provider Internal Medicine; Emergency Provider Emergency Medicine; PCP Family Medicine; Visit Provider Internal Medicine
DX: J96.01 Acute respiratory failure with hypoxia (principal); J45.21 Mild intermittent asthma with (acute) exacerbation; J96.02 Acute respiratory failure with hypercapnia; B34.8 Other viral infections of unspecified site; B34.1 Enterovirus infection, unspecified; F12.10 Cannabis abuse, uncomplicated; F41.8 Other specified anxiety disorders; Z20.822 Contact with and (suspected) exposure to COVID-19; D72.10 Eosinophilia, unspecified; F60.3 Borderline personality disorder; Z91.141 Patient's other noncompliance with medication regimen due to financial hardship
CPT/HCPCS: 36415; 36600; 71045; 80053; 82803; 82805; 82810; 83605; 83735; 84145; 84703; 85018; 85025; 85027; 85380; 87633; 87637; 87641; 93005; 94002; 94640; 96361; 96365; 96366; 96375; 99285; A9270; J0171; J1650; J2060; J2919; J7030; J7060